=== PATIENT | male | born 1985 | race Caucasian/White ===

== ENCOUNTER 2017-10-31 13:48 | Emergency (ER) | END 2017-10-31 16:09 | disposition home or self-care (01) ==

== ENCOUNTER 2018-05-11 15:36 | Emergency (ER) | payer SELFPAY ==
[~2018-05-11] VITALS: Ht 180.3 cm; Wt 78.0 kg
[~2018-05-11 15:36] MED LIST: HYDR-4011 PO; IBUP-1542 PO
[2018-05-11 15:38] VITALS: BP 126/60; PULSE 107; RESP 20; Ht 180.3 cm; Wt 78.0 kg
== END 2018-05-11 20:04 | disposition left against medical advice (07) ==
LOC: FTE 15:36 → E/R 20:04
DX: Z53.21 Procedure and treatment not carried out due to patient leaving prior to being seen by health care provider (principal)